=== PATIENT | female | born 1960 | race Caucasian/White ===

== ENCOUNTER 2019-01-05 12:44 | Emergency (ER) | payer OTHER ==
[~2019-01-05] VITALS: Ht 157.5 cm; Wt 110.0 kg
[2019-01-05] MEDS ORDERED: SODIUM CHLORIDE FLUSH 10ML SYR IVF ONE (13:00)
[2019-01-05] MEDS ORDERED: PLEASE ENTER ALLERGIES MC SCH (13:00)
[2019-01-05] MEDS ORDERED: MORPHINE SULFATE 4 MG/ML, 1ML IVPush PRN (13:00)
[2019-01-05] MEDS ORDERED: PLEASE ENTER HEIGHT AND WEIGHT MC SCH (13:00)
[2019-01-05] MEDS ORDERED: MORPHINE SULFATE 4 MG/ML, 1ML ONE ×2 (13:00→13:49)
[2019-01-05 13:16] LABS: BASOPHILS # (AUTO) 0.11 x10^3/uL (0-0.1); BASOPHILS % (AUTO) 1 % (0-1); EOSINOPHILS # (AUTO) 0.15 x10^3/uL (0-0.4); EOSINOPHILS % (AUTO) 2 % (1-7); LYMPHOCYTES # (AUTO) 1.39 x10^3/uL (1-3.4); LYMPHOCYTES % (AUTO) 18 % (22-44); MD NO; MEAN CORPUSCULAR HGB CONC 34.5 g/dL (32.4-35.8); MEAN CORPUSCULAR VOLUME 86.8 fL (80-100); MEAN PLATELET VOLUME 8.3 fL (7.4-10.4); MONOCYTES # (AUTO) 0.35 x10^3/uL (0.2-0.8); MONOCYTES % (AUTO) 5 % (2-9); NEUTROPHILS # (AUTO) 5.78 x10^3/uL (1.8-6.8); NEUTROPHILS % (AUTO) 74 % (42-75); PLATELET COUNT 277 x10^3/uL (130-400); RED BLOOD COUNT 4.79 x10^6/uL (3.82-5.3); RED CELL DISTRIBUTION WIDTH 13.8 % (9.6-15.2)
[2019-01-05 13:20] LABS: ALANINE AMINOTRANSFERASE 19 U/L (12-78); ALBUMIN 3.6 g/dL (3.4-5.0); ANION GAP 6 mmol/L (5-15); CALCIUM 8.7 mg/dL (8.5-10.1); CHLORIDE 111 mmol/L (98-107); CREATININE 1.16 mg/dL (0.55-1.02)
[2019-01-05 13:23] LABS: ALKALINE PHOSPHATASE 114 U/L (45-117); BILIRUBIN,TOTAL 0.6 mg/dL (0.2-1.0)
[2019-01-05] MEDS ORDERED: AMLO-150 PO (13:27)
[2019-01-05] MEDS ORDERED: LEVO88TA4 PO (13:27)
[2019-01-05] MEDS ORDERED: ATOR10TA9 PO (13:27)
[2019-01-05] MEDS ORDERED: BUPR150T73 PO (13:27)
[2019-01-05] MEDS ORDERED: TOPI50TA8 PO (13:37)
[2019-01-05] MEDS ORDERED: OMEP-110 PO (13:37)
[2019-01-05] MEDS ORDERED: DULO30CA2 PO (13:37)
[2019-01-05] MEDS ORDERED: GABA-827 PO (13:37)
[2019-01-05] MEDS ORDERED: LISI-167 PO (13:37)
[2019-01-05] MEDS ORDERED: QUET50TA PO (13:37)
--- NOTE | 2019-01-05 13:53 | NUR ---
PT TO CT
[2019-01-05] MEDS ORDERED: KETOROLAC 30 MG/1 ML IVPush ONE (14:30)
[2019-01-05] MEDS ORDERED: KETOROLAC 30 MG/1 ML ONE (14:49)
[2019-01-05 14:52] LABS: MICROSCOPIC AUTO
[2019-01-05 14:53] LABS: CULTURE INDICATED? NO
[2019-01-05 15:46] VITALS: BP 154/86
== END 2019-01-05 15:48 | disposition home or self-care (01) ==
LOC: ED 14:23
DX: N20.2 Calculus of kidney with calculus of ureter (principal); N39.0 Urinary tract infection, site not specified; N12 Tubulo-interstitial nephritis, not specified as acute or chronic; R31.9 Hematuria, unspecified; E03.9 Hypothyroidism, unspecified; K21.9 Gastro-esophageal reflux disease without esophagitis; E78.5 Hyperlipidemia, unspecified; I10 Essential (primary) hypertension
CPT/HCPCS: 36415; 74176; 80053; 81001; 83690; 85025; 93005; 96374; 96375; 99284; J1885